=== PATIENT | male | born 1960 | race Caucasian/White ===

== ENCOUNTER → 2024-05-04 09:53 | Outpatient (REF) | payer OTHER, SELFPAY | LOC: HWRAD 09:53 | PROVIDERS: ATTENDING PHYSICIAN Family Medicine | DX: Z87.891 Personal history of nicotine dependence (principal) | CPT/HCPCS: 71271 ==

== ENCOUNTER → 2025-07-31 11:23 | Outpatient (REF) | payer MEDICARE, SELFPAY | LOC: RAD 11:23 | PROVIDERS: ATTENDING PHYSICIAN Family Medicine | DX: M25.561 Pain in right knee (principal) | CPT/HCPCS: 73564; 73565 ==